=== PATIENT | male | born 1980 | race Caucasian/White ===

== ENCOUNTER 2018-08-20 05:18 | Day surgery (SDC) | payer OTHER ==
[~2018-08-20] VITALS: Ht 185.4 cm; Wt 108.0 kg
[2018-08-20] MEDS ORDERED: LISI-167 PO (05:23)
[2018-08-20] MEDS ORDERED: AMLO10TA6 PO (05:23)
[2018-08-20] MEDS ORDERED: LANS15TA6 PO (05:23)
[2018-08-20] MEDS ORDERED: ONDANSETRON 2MG/ML, 2ML ONE ×2 (05:39→22:35)
[2018-08-20] MEDS ORDERED: FAMOTIDINE 20 MG/2 ML ONE (05:40)
[2018-08-20] MEDS ORDERED: MORPHINE SULFATE 4 MG/ML, 1ML ONE ×2 (05:40→06:02)
[2018-08-20] MEDS: MORPHINE SULFATE 4 MG/ML, 1ML IVPush PRN ×2 (05:42→05:52)
--- NOTE | 2018-08-20 05:44 | NUR ---
TRIAGE: PT HERE STATING MID EPIGASTRIC PAIN, ONSET 1 HOUR AGO, AWOKE PT FROM SLEEP, PAIN IS CONSTANT, UNRELIEVED BY ANTACID. PAIN NON RADIATING, NO SOB AND NO DIZZINESS, INTITALLY NO DIAPHORESIS. EKG OBTAINED IN TRIAGE. RUQ TENDERNESS, VOMITING IN TRIAGE. PT DIAPHORETIC, TREMBLING IN PAIN ON ARRIVAL TO ROOM 16, STATES HE IS UNABLE TO DESCRIBE THE PAIN ONLY THAT IT IS THERE. MONITORS APPLIED, PIV STARTED. PA AT BEDSIDE FOR ORDERS. FLUIDS INFUSING. PT DENIES NAUSEA FOLLOWING VOMITING EPISODE. HX OF HTN
--- NOTE | 2018-08-20 05:47 | NUR ---
PT TO US
[2018-08-20 06:00] LABS: BASOPHILS # (AUTO) 0.08 x10^3/uL (0-0.1); BASOPHILS % (AUTO) 1 % (0-1); EOSINOPHILS # (AUTO) 0.04 x10^3/uL (0-0.4); EOSINOPHILS % (AUTO) 0 % (1-7); LYMPHOCYTES # (AUTO) 3.01 x10^3/uL (1-3.4); LYMPHOCYTES % (AUTO) 32 % (22-44); MD NO; MEAN CORPUSCULAR HEMOGLOBIN 31.5 pg (27.5-34.5); MEAN CORPUSCULAR HGB CONC 34.5 g/dL (33.2-36.2); MEAN CORPUSCULAR VOLUME 91.3 fL (81-97); MEAN PLATELET VOLUME 7.9 fL (7.4-10.4); MONOCYTES # (AUTO) 0.66 x10^3/uL (0.2-0.8); MONOCYTES % (AUTO) 7 % (2-9); NEUTROPHILS # (AUTO) 5.55 x10^3/uL (1.8-6.8); NEUTROPHILS % (AUTO) 59 % (42-75); PLATELET COUNT 314 x10^3/uL (130-400); RED BLOOD COUNT 5.14 x10^6/uL (4.38-5.82); RED CELL DISTRIBUTION WIDTH 12.8 % (9.4-14.8)
[2018-08-20] MEDS ORDERED: ONDANSETRON 2MG/ML, 2ML IVPush ONE (06:00)
[2018-08-20] MEDS ORDERED: FAMOTIDINE 20 MG/2 ML IVP ONE (06:00)
[2018-08-20] MEDS ORDERED: SODIUM CHLORIDE FLUSH 10ML SYR IVF ONE (06:00)
[2018-08-20] MEDS ORDERED: SODIUM CHLORIDE 0.9% 1,000ML IVBOLUS ONE (06:00)
[2018-08-20] MEDS ORDERED: HYDROmorphone 2 MG/ML, 1ML ONE ×2 (06:06→07:30)
--- NOTE | 2018-08-20 06:10 | NUR ---
UPDATE:NOTIFIED BY WIDE THAT PT UNABLE TO TOLERATE US/XR. THIS NURSE WENT TO MEDICATE PT IN RADIOLOGY. PT FOUND TO BE PALE AND DIAPHORETIC. VS REMAIN STABLE, JAY IRELAND NOTIFIED, SEE NEW ORDERS
[2018-08-20 06:17] LABS: TROPONIN I < 0.015 ng/mL (0.000-0.045)
--- NOTE | 2018-08-20 06:18 | NUR ---
REPEAT EKG DONE
[2018-08-20 06:19] LABS: ALANINE AMINOTRANSFERASE 86 U/L (12-78); ALBUMIN 4.2 g/dL (3.4-5.0); ANION GAP 11 mmol/L (5-15); CALCIUM 8.7 mg/dL (8.5-10.1); CHLORIDE 108 mmol/L (98-107); CREATININE 0.94 mg/dL (0.7-1.3)
[2018-08-20 06:22] LABS: ALKALINE PHOSPHATASE 90 U/L (45-117); BILIRUBIN,TOTAL 0.4 mg/dL (0.2-1.0); TOTAL PROTEIN 7.4 g/dL (6.4-8.2)
[2018-08-20] MEDS ORDERED: MAALOX/HYOSCYAMINE/LIDOCAINE 45 ML BTL ONE (06:27)
[2018-08-20] MEDS ORDERED: MAALOX/HYOSCYAMINE/LIDOCAINE 45 ML BTL PO ONE ×2 (06:30→09:30)
[2018-08-20] MEDS ORDERED: OMNIPAQUE 350 MG/ML, 100ML BOTTLE ONE (06:30)
[2018-08-20] MEDS ORDERED: HYDROmorphone 1 MG/ML, 1ML IV ONE ×2 (06:30→07:30)
--- NOTE | 2018-08-20 06:35 | NUR ---
PT IN CT
--- NOTE | 2018-08-20 07:18 | NUR ---
Patient reports pain has improved by "25%". Waiting for provider to reevaluate.
[2018-08-20] MEDS ORDERED: HYDROmorphone 2 MG/ML, 1ML IV ONE (07:30)
[2018-08-20] MEDS ORDERED: LOSA50TA7 PO (07:35)
--- NOTE | 2018-08-20 07:44 | NUR ---
Patient medicated as ordered and documented for 8/10 epigastric abdominal pain. Oxygen placed via nasal cannula @ 2LPM after narcotic administration. Call crockett within reach, at bedside.
--- NOTE | 2018-08-20 07:50 | NUR ---
Attempted to call report, RN unavailable.
--- NOTE | 2018-08-20 08:16 | NUR ---
Report called to ANANDA Price
--- NOTE | 2018-08-20 08:18 | NUR ---
Plan of care updated with patient and his , patient reports some improvement in pain.
[2018-08-20 08:28] VITALS: BP 133/84
[2018-08-20] MEDS ORDERED: ACETAMINOPHEN 325 MG TABLET PO PRN (09:30)
[2018-08-20] MEDS ORDERED: PROMETHAZINE 25 MG/ML, 1ML IM PRN (09:30)
[2018-08-20] MEDS ORDERED: ONDANSETRON ODT 4 MG PO PRN (09:30)
[2018-08-20] MEDS ORDERED: OXYcodone IR 5MG TABLET PO PRN (09:30)
[2018-08-20] MEDS ORDERED: morphine SULFATE 10 MG/ML, 1ML IVPush PRN (09:30)
[2018-08-20] MEDS ORDERED: IBUPROFEN 600 MG TABLET PO PRN (09:30)
[2018-08-20] MEDS ORDERED: ENOXAPARIN 40 MG/0.4 ML SQ SCH (10:00)
[2018-08-20] MEDS: SODIUM CHLORIDE 0.9% 1,000 ML IV SCH ×2 (10:09→23:30)
[2018-08-20 10:28] VITALS: BP 156/80
[2018-08-20 11:34] LABS: MICROSCOPIC NOT IND
[2018-08-20 11:38] LABS: CULTURE INDICATED? NO
[2018-08-20 14:02] VITALS: BP 151/91
[2018-08-20] MEDS ORDERED: CEFTRIAXONE PMX 2GM/50ML 50 ML IV SCH (15:00)
[2018-08-20] MEDS ORDERED: BUPIVACAINE/PF-EPI 0.5% 1:200K ONE (19:37)
[2018-08-20 20:20] VITALS: BP 157/90
[2018-08-20] MEDS ORDERED: LOSARTAN 50MG TABLET PO SCH (21:00)
[2018-08-20] MEDS ORDERED: AMLODIPINE 10 MG TAB PO SCH (21:00)
[2018-08-20] MEDS ORDERED: FENTANYL PF 250 MCG/5ML ONE (21:45)
[2018-08-20] MEDS ORDERED: KETOROLAC 30 MG/1 ML ONE (21:57)
[2018-08-20] MEDS ORDERED: BUPIVACAINE/PF-EPI 0.5% 1:200K INFIL ONE (22:21)
[2018-08-20] MEDS ORDERED: OXYcodone 5 MG/5 ML ORAL.SOL UDC PO PRN (22:30)
[2018-08-20] MEDS ORDERED: DIPHENHYDRAMINE 50 MG/ML, 1ML IVPush PRN (22:30)
[2018-08-20] MEDS ORDERED: hydrALAzine 20 MG/ML, 1ML IV PRN (22:30)
[2018-08-20] MEDS ORDERED: MEPERIDINE/PF 25MG/0.5ML IVPush PRN (22:30)
[2018-08-20] MEDS ORDERED: FENTANYL PF 100 MCG/2ML IV PRN (22:30)
[2018-08-20] MEDS ORDERED: HYDROmorphone 1 MG/ML, 1ML IV PRN (22:30)
[2018-08-20] MEDS ORDERED: LABETALOL 5MG/ML, 20ML IV PRN (22:30)
[2018-08-20] MEDS ORDERED: PROCHLORPERAZINE 5 MG/ML, 2ML IV PRN (22:30)
[2018-08-20] MEDS ORDERED: PROPOFOL 10 MG/ML, 20ML ONE (22:35)
[2018-08-20] MEDS ORDERED: DEXAMETHASONE 4 MG/ML, 1ML ONE (22:35)
[2018-08-20] MEDS ORDERED: ROCURONIUM 10MG/ML,5ML ONE (22:35)
[2018-08-20] MEDS ORDERED: SUCCINYLCHOLINE 20 MG/ML, 10ML ONE (22:35)
[2018-08-20] MEDS ORDERED: GLYCOPYRROLATE 0.2MG/1ML, 5ML ONE (22:35)
[2018-08-20] MEDS ORDERED: NEOSTIGMINE 1 MG/ML, 10ML ONE (22:35)
[2018-08-20] MEDS ORDERED: CEFAZOLIN 1,000 MG ONE (22:35)
[2018-08-20] MEDS ORDERED: FENTANYL PF 100 MCG/2ML ONE (23:01)
[2018-08-20] MEDS ORDERED: OXYcodone 5 MG/5 ML ORAL.SOL UDC ONE (23:01)
[2018-08-21] MEDS ORDERED: FENTANYL PF 100 MCG/2ML IV ONE
[2018-08-21] MEDS: FAMOTIDINE 20 MG TABLET PO SCH ×2 (00:02→08:25)
[2018-08-21 00:57] VITALS: BP 123/78
[2018-08-21] MEDS ORDERED: HYDROcodone/APAP 5/325 TABLET PO PRN (01:00)
[2018-08-21] MEDS ORDERED: D5%-0.45NACL+KCL 20MEQ 1,000 ML IV SCH (01:00)
[2018-08-21] MEDS ORDERED: MORPHINE SULFATE 4 MG/ML, 1ML IV PRN (01:00)
[2018-08-21 04:03] VITALS: BP 102/63
[2018-08-21 05:35] LABS: BASOPHILS # (AUTO) 0.01 x10^3/uL (0-0.1); BASOPHILS % (AUTO) 0 % (0-1); EOSINOPHILS % (AUTO) 0 % (1-7); LYMPHOCYTES # (AUTO) 0.58 x10^3/uL (1-3.4); LYMPHOCYTES % (AUTO) 5 % (22-44); MD NO; MEAN CORPUSCULAR HEMOGLOBIN 31.9 pg (27.5-34.5); MEAN CORPUSCULAR HGB CONC 35.1 g/dL (33.2-36.2); MEAN CORPUSCULAR VOLUME 90.9 fL (81-97); MEAN PLATELET VOLUME 8.2 fL (7.4-10.4); MONOCYTES # (AUTO) 0.69 x10^3/uL (0.2-0.8); MONOCYTES % (AUTO) 6 % (2-9); NEUTROPHILS # (AUTO) 11.18 x10^3/uL (1.8-6.8); NEUTROPHILS % (AUTO) 90 % (42-75); PLATELET COUNT 276 x10^3/uL (130-400); RED BLOOD COUNT 4.72 x10^6/uL (4.38-5.82); RED CELL DISTRIBUTION WIDTH 12.8 % (9.4-14.8)
[2018-08-21 05:45] LABS: ANION GAP 9 mmol/L (5-15); CALCIUM 8.6 mg/dL (8.5-10.1); CHLORIDE 107 mmol/L (98-107)
[2018-08-21 05:48] LABS: CREATININE 0.92 mg/dL (0.7-1.3)
[2018-08-21 07:11] VITALS: BP 122/67
[2018-08-21] MEDS ORDERED: HYDR-3240 PO (08:41)
[2018-08-21] MEDS ORDERED: DOCU-131 PO (08:41)
[2018-08-21] MEDS ORDERED: ONDA4TAB13 PO (08:41)
== END 2018-08-21 10:06 | disposition home or self-care (01) ==
LOC: ED 06:28 → EDIP 07:41 → UNDOADMIN 07:41 → SDC 07:42 → EDIP 08:25 → 4NOR 08:25 → DCLOUNGE 08-21 09:55 → UNDODISIN 08-21 10:05 → SDC 08-21 10:06
PROVIDERS: ATTEND Internal Medicine
DX: K80.12 Calculus of gallbladder with acute and chronic cholecystitis without obstruction (principal); I10 Essential (primary) hypertension; F17.210 Nicotine dependence, cigarettes, uncomplicated; K76.0 Fatty (change of) liver, not elsewhere classified; K30 Functional dyspepsia; R73.9 Hyperglycemia, unspecified; Z82.49 Family history of ischemic heart disease and other diseases of the circulatory system
CPT/HCPCS: 36415; 47562; 71045; 74177; 76700; 78226; 80048; 80053; 81003; 83690; 83735; 84100; 84484; 85025; 86677; 88304; 93005; 96361; 96374; 96375; 96376; 99285; A9537; C9898; J0330; J0690; J0696; J1100; J1170; J1650; J1885; J2405; J2704; J2710; J3010; J3490; J7030; Q9967; G0378